=== PATIENT | male | born 1975 | race African-American/Black ===

== ENCOUNTER 2025-03-31 20:21 | Emergency (ER) | payer SELFPAY ==
[2025-03-31 21:30] VITALS: BP 110/74; PULSE 110; RESP 18; TEMP 99.1; BMI 27.6
== END 2025-03-31 22:31 | disposition home or self-care (01) ==
LOC: JER 20:21
DX: M25.532 Pain in left wrist (principal); Y04.0XXA Assault by unarmed brawl or fight, initial encounter
CPT/HCPCS: 73110-TC-LT-FY; 73130-TC-LT-FY; 99283-25

== ENCOUNTER 2025-03-31 23:56 | Emergency (ER) | payer SELFPAY ==
[2025-04-01 00:02] VITALS: BP 112/72; PULSE 88; RESP 18; TEMP 98; BMI 27.6
== END 2025-04-01 01:00 | disposition left against medical advice (07) ==
LOC: JER 23:56
DX: Z53.21 Procedure and treatment not carried out due to patient leaving prior to being seen by health care provider (principal)
CPT/HCPCS: 99281-25